=== PATIENT | female | born 1990 | race Caucasian/White ===

== ENCOUNTER → 2018-08-04 | Outpatient (CLI) | payer OTHER | LOC: M SMT 13:27 | DX: O09.211 Supervision of pregnancy with history of pre-term labor, first trimester (principal); Z36.89 Encounter for other specified antenatal screening; Z3A.19 19 weeks gestation of pregnancy | CPT/HCPCS: 76811 ==

== ENCOUNTER → 2018-08-29 | Outpatient (CLI) | payer OTHER | LOC: M SMT 09:39 | DX: Z36.89 Encounter for other specified antenatal screening (principal); Z3A.22 22 weeks gestation of pregnancy | CPT/HCPCS: 76816 ==

== ENCOUNTER → 2018-12-08 | Outpatient (REF) | payer OTHER ==
[~2018-12-08] MED LIST: IBUP60TA PO; MAPA500T2 PO; STUACAP PO
== END ==
LOC: M LAB REF 13:58
PROVIDERS: ATTEND Advanced Practice Midwife
DX: O09.213 Supervision of pregnancy with history of pre-term labor, third trimester (principal); Z3A.00 Weeks of gestation of pregnancy not specified

== ENCOUNTER 2018-12-20 22:34 | Inpatient (IN) | payer OTHER ==
[~2018-12-20] VITALS: Ht 162.6 cm; Wt 84.0 kg
--- NOTE | 2018-12-20 23:12 | NUR ---
L&D H&P HPI: 28 year old at 37+5 weeks estimated gestation. Expected date of confinement: 01/05/19. dated by a first TM US. Presented with painful uctx, LOF, and urge to push. Onset of ctxs only 2 hours ago. Reports regular movement. course uncomplicated but notable for h/o GHTN wiht late / spontaneous PTB at 36 week w/ delivery via . labs: Blood type AB+, antibody screen negative, rubella immune, VDRL nonreactive , hepatitis B surface antigen negative, HIV negative, hepatitis C antibody negative, GC/CT negative, aneuploidy/maternal serum screening: declined, 1 hour glucose challenge test: 92, GBS negative. Vaccinations: Tdap 11/02/18 Flu vaccine 07/13/18 Radiology/OB US: no anomalies or placental abnormalities detected. 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 Remote hx of cervical dysplasia OB history: G1, 03/2016 36+1, 5lbs 11oz, PTL, GHTN. Social history: no t/e/d Family history: heart disease, mother aortic aneurysm/heart valve replacement Objective Vitals: Normotensive, normal heart rate, afebrile Heart: Regular rate and rhythm. No murmurs, rubs or gallops. Lungs: Clear to auscultation bilaterally. No wheezes, crackles, rales or rhonchi. Abdomen: Uterine fundal height consistent with dates. No guarding or rebound tenderness. Extremities: No clubbing, cyanosis or edema. Normal deep tendon reflexes. Sterile vaginal exam: 10 cm, 100 %effacement,+3 station, cephalic, intact External monitoring: heart rate not traced (no time to do it) Tocodynamometer: no tracing, contractions occurring every 2-3 min per pt report. Assessment/Plan 28 year old at 37+5 weeks gestation. Diagnosis: active labor; second stage upon admission with urge to push. Reassuring and maternal status. -Admit to labor and delivery with routine labs and orders -Delivery occurred soon after her arrival (see Delivery Note) Dr. Todd Gamino, DO, FACOG
--- NOTE | 2018-12-20 23:19 | NUR ---
Delivery note Spontaneous vaginal delivery Estimated gestational age at delivery: 37+5 weeks Pt's labor progressed in precipitous fashion. Arrived in second stage ready to push only 2 hours after the onset of her contractions. The head delivered left occiput anterior and restituted left occiput transverse. No nuchal cord was noted. The anterior shoulder delivered with gentle downward guidance and the remainder of the body delivered with ease. Cord clamping was delayed for approximately 1 minute after delivery. After doubly clamping the cord, I allowed the FOB to cut the cord. The was placed on the patient's chest for immediate bonding. data: Apgars 9 and 9. weight 2900 grams 6 pounds, 6 ounces. Time of delivery: 2231. Sex: Male The third stage of labor was actively managed with a bolus of IV Pitocin (30 units in 500 mL of normal saline). The placenta delivered completely intact with no missing cotyledons at 223. A three-vessel cord with a central insertion was noted. After delivery of the placenta, the uterine fundus was approximately 2 cm below the umbilicus and firm. IM Pitocin 10U was continued to maintain uterine tone. A normal, low level of uterine bleeding was noted. The cervix, vagina, vulva and perineum were inspected for lacerations. No laceration was noted. Excellent hemostasis was noted. Estimated blood loss: 200ml. All sponges, needles, and instruments were accounted for per [employer] department protocol. Todd Gamino D.O., F.Jen.Karen.
[2018-12-21 01:09] VITALS: BP 131/82
--- NOTE | 2018-12-21 06:20 | NUR ---
Day 1 Status post , uncomplicated Subjective Pain is well controlled. Lochia decreasing and minimal. Voiding spontaneously. Tolerating a regular diet. Ambulating without any assistance. Denies any subjective fever/chills/nausea/vomiting/headache/visual changes/shortness of breath/chest pain. Breast feeding. Objective Vitals: Normotensive, normal heart rate, afebrile, adequate urine output. Heart: regular, rate, and rhythm. no murmurs/gallops/rubs Lungs: clear to auscultation bilaterally, no wheezes/crackles/rales/ronchi Abd: soft, nontender, nondistended, uterine fundus is 2cm below umbilicus and firm Ext: no significant edema, nontender, negative Lisset's bilaterally. Assessment/Plan: day 1. Recovering well. Hemodynamically stable, afebrile, good pain control. -Routine care -Discharge to home tomorrow. -Routine infectious, fever, pain, and bleeding precautions reviewed Ericka Pastor.O., F.A.C.O.G.
[2018-12-21 06:31] VITALS: BP 109/69
[2018-12-21] MEDS ORDERED: ACETAMINOPHEN 500 MG TAB PO PRN (08:00)
[2018-12-21] MEDS ORDERED: DIBUCAINE 1% OINTMENT 30GM TOP PRN (08:00)
[2018-12-21] MEDS ORDERED: METHYLERGONOVINE MALEATE 0.2 MG TAB PO PRN (08:00)
[2018-12-21] MEDS ORDERED: IBUPROFEN 800 MG TAB PO PRN (08:00)
[2018-12-21] MEDS ORDERED: OXYTOCIN INJ 10 UNITS/ML VIAL (J2590) IM ONE (08:00)
[2018-12-21] MEDS ORDERED: RHOGAM 300 MCG (1500 IU) INJ (J2790) IM SCH (08:00)
[2018-12-21] MEDS ORDERED: DOCUSATE SODIUM 100 MG CAP PO PRN (08:00)
[2018-12-21] MEDS ORDERED: MEASLES,MUMPS,RUBELLA VACCINE INJ (MMR-II) (90707) SC SCH (08:00)
[2018-12-21] MEDS: PRENATAL VITAMINS CHEWABLE TABLET PO SCH (08:46)
[2018-12-21 18:28] VITALS: BP 121/72
[2018-12-21 20:01] LABS: HEMATOCRIT 36.9 % (36.0-47.0); HEMOGLOBIN 12.6 g/dl (12.0-15.5); MEAN CORPUSCULAR HEMOGLOBIN 31.4 pg (27.0-33.0); MEAN CORPUSCULAR HGB CONC 34.1 g/dl (32.0-36.5); PLATELET COUNT, AUTOMATED 197 10^3/uL (150-450); RED BLOOD COUNT 4.01 10^6/uL (4.00-5.40); WHITE BLOOD COUNT 12.6 10^3/uL (4.0-10.0)
[2018-12-22 06:38] VITALS: BP 119/71
[2018-12-22] MEDS: PRENATAL VITAMINS CHEWABLE TABLET PO SCH (09:01)
== END 2018-12-22 12:30 | disposition home or self-care (01) | DRG 807 ==
LOC: M LDI 22:34 → M OBS 12-21 01:00
PROVIDERS: ADMIT Obstetrics & Gynecology; ATTEND Obstetrics & Gynecology
PROC: 10E0XZZ Delivery of Products of Conception, External Approach (ICD-10-PCS; principal; 2018-12-20)
DX: O62.3 Precipitate labor (principal); Z37.0 Single live birth; Z3A.37 37 weeks gestation of pregnancy

== ENCOUNTER → 2023-01-22 | Outpatient (REF) | payer OTHER ==
[~2023-01-22] MED LIST changes: +IBUP600T42 PO; -IBUP60TA PO
== END ==
LOC: M SFHCWAGY 10:04
PROVIDERS: ATTEND Advanced Practice Midwife
DX: Z12.4 Encounter for screening for malignant neoplasm of cervix (principal); R87.610 Atypical squamous cells of undetermined significance on cytologic smear of cervix (ASC-US)
CPT/HCPCS: 87624; G0123

== ENCOUNTER → 2023-02-15 | Outpatient (CLI) | payer OTHER | LOC: M WHC 07:25 | PROVIDERS: ATTEND Advanced Practice Midwife | DX: R10.813 Right lower quadrant abdominal tenderness (principal) ==